=== PATIENT | male | born 1970 | race Caucasian/White ===

== ENCOUNTER 2018-12-27 16:01 | Inpatient (IN) ==
[2018-12-27] MEDS ORDERED: Aspirin 81 MG TAB.CHEW PO ONE (16:13)
[2018-12-27] MEDS ORDERED: Nitroglycerin 0.4 MG TAB.SUBL SL PRN (16:13)
[2018-12-27 16:35] LABS: Basophils % 0.4 %; Eosinophils # 0.3 K/mcL (0.0-0.6); Eosinophils % 3.8 %; Hematocrit 36.3 % (37.5-50.1); Hemoglobin 12.1 g/dL (12.9-16.9); Immature Granulocytes % 0.3 % (0-4); Lymphocytes # 1.9 K/mcL (0.6-4.6); Lymphocytes % 26.3 %; Mean Corpuscular HGB Conc 33.3 g/dL (31.6-35.5); Mean Corpuscular Hemoglobin 33.8 pg (28.0-33.3); Mean Corpuscular Volume 101.4 fL (83.0-100.0); Mean Platelet Volume 10.1 fL (9.4-12.4); Monocytes # 0.7 K/mcL (0.0-1.3); Monocytes % 9.9 %; Neutrophils # 4.2 K/mcL (1.6-8.9); Platelet Count 204 K/mcL (140-400); Red Blood Count 3.58 M/mcL (4.19-5.50); Segmented Neutrophils % 59.3 %; White Blood Count 7.1 K/mcL (4.3-11.1)
[2018-12-27 16:43] LABS: Prothrombin Time 11.4 Seconds (9.4-12.1)
[2018-12-27 16:46] LABS: Activated Partial Thrombo Time 31.6 Seconds (26.0-36.0)
[2018-12-27 16:54] LABS: BUN/Creatinine Ratio 23 (6-26); Blood Urea Nitrogen 17 mg/dL (6-20); Calcium 8.8 mg/dL (8.6-10.3); Carbon Dioxide 24 mEq/L (23-29); Chloride 104 mEq/L (98-107); Glucose 99 mg/dL (70-105); Osmolality,Calculated 292 (280-300); Potassium 4.6 mEq/L (3.5-5.1); Sodium 140 mEq/L (136-145); eGFR For African Americans > 60 (> 60); eGFR For Non-African Americans > 60 (> 60)
[2018-12-27 16:55] LABS: Troponin I < 0.03 ng/mL (< 0.04)
--- NOTE | 2018-12-27 18:04 | Emergency Department Note ---
Disposition Clinical Impression: Chest pain Disposition: Admitted As Inpatient Condition: Good Referrals: Frank Morocho MD [Primary Care Provider] - Forms: ED Satisfaction Letter Time of Disposition: 18:21 Chest Pain HPI - General Chief Complaint: ED Chest Pain Stated Complaint: Chest pain Time Seen by Provider: 12/27/18 16:04 Source: EMS - History of Present Illness HPI Narrative: Patient is a 48-year-old gentleman is a nonverbal autistic patient that presents to the emergency department with chief complaint of chest pain. Per the caregivers the patient was holding his chest today and complaining that it was uncomfortable. The patient does have prior history of cardiac disease and has had a bypass before in the past. The patient currently is saying his chest is not hurting at this time and has no other complaints Severity scale (1-10): 6 - Related Data Home Medications Medication Instructions Recorded Confirmed Aspirin [Adult Low Dose Aspirin EC] 81 mg PO DAILY 10/14/15 08/07/18 Citalopram [CeleXA] 20 mg PO DAILY 10/14/15 08/07/18 Lisinopril [Zestril] 10 mg PO BID 10/14/15 08/07/18 Metformin HCl [Glucophage] 1,000 mg PO BID 10/14/15 08/07/18 Pravastatin Sodium [Pravachol] 40 mg PO DAILY 10/14/15 08/07/18 Glimepiride [Amaryl] 2 mg PO QAM 11/29/15 08/07/18 Levothyroxine Sodium [Tirosint] 50 mcg PO QAM 11/29/15 08/07/18 Phenytoin ER [Dilantin ER] 200 mg PO QAM 11/29/15 08/07/18 Saxagliptin HCl [Onglyza] 5 mg PO DAILY 11/29/15 08/07/18 Previous Rx's Medication Instructions Recorded Metoprolol [Lopressor] 75 mg PO BID #30 tablet 01/16/17 Nitrofurantoin Monohyd/M-Cryst 100 mg PO BID #14 capsule 08/07/18 [Macrobid 100 mg Capsule] Allergies Allergy/AdvReac Type Severity Reaction Status Date / Time No Known Allergies Allergy Verified 08/07/18 19:36 All systems ED: reviewed and negative except as stated. Chest Pain PMH - Past Medical History Medical history: Reports: coronary artery disease, diabetes, GERD, hyperlipidemia, hypertension, myocardial infarction, thyroid disease, other Surgical history: Reports: coronary bypass (CABG) (2V) Psychiatric history: Reports: other, depression - Social History Smoking Status: Never smoker Alcohol use: Reports: none Drug use: Reports: none Physical Exam General: Conversant and pleasant interactive and nontoxic. Head: Normocephalic/atraumatic Eyes:PERRLA, EOMI, no conjunctivitis Nares: Without d/c. Ears: No erythema or d/c noted. Oralpharnyx: P&MMM noted, Neck: Supple, no JVD or CERTIFIED PROFESSIONAL CODER noted. Cardovascular: regular rate and rhythm without murmur, brisk capillary refill, no peripheral edema. Lungs: Clear to ascultation bilaterally, non-labored Abd: Soft nontender, Non Distended, no guarding, no rebound. : Defered Extremities: moves all extremities equally Neuro: Alert at baseline, no obvious gross neuro deficit Psych: Normal Affect Derm: No rash noted - General General appearance: alert Course Vital Signs Temperature 97.8 F 12/27/18 17:42 Pulse Rate 74 12/27/18 17:42 Respiratory Rate 18 12/27/18 17:42 Blood Pressure 106/63 12/27/18 17:42 O2 Sat by Pulse Oximetry 96 12/27/18 17:42 Temperature 97.8 F 12/27/18 17:42 Pulse Rate 74 12/27/18 17:42 Respiratory Rate 18 12/27/18 17:42 Blood Pressure 106/63 12/27/18 17:42 O2 Sat by Pulse Oximetry 96 12/27/18 17:42 Oxygen Delivery Oxygen Delivery Room Air Chest Pain - Lab Data Result diagrams: 12/27/18 16:22 12/27/18 16:22 Lab Results 12/27/18 12/27/18 12/27/18 Range/Units 16:22 16:22 16:22 WBC 7.1 (4.3-11.1) K/mcL RBC 3.58 L (4.19-5.50) M/mcL Hgb 12.1 L (12.9-16.9) g/dL Hct 36.3 L (37.5-50.1) % MCV 101.4 H (83.0-100.0) fL MCH 33.8 H (28.0-33.3) pg MCHC 33.3 (31.6-35.5) g/dL RDW 13.0 (11.5-14.5) % Plt Count 204 (140-400) K/mcL MPV 10.1 (9.4-12.4) fL Immature Gran % 0.3 (0-4) % Seg Neutrophils % 59.3 % Lymphocytes % 26.3 % Monocytes % 9.9 % Eosinophils % 3.8 % Basophils % 0.4 % Neutrophils # 4.2 (1.6-8.9) K/mcL Lymphocytes # 1.9 (0.6-4.6) K/mcL Monocytes # 0.7 (0.0-1.3) K/mcL Eosinophils # 0.3 (0.0-0.6) K/mcL Basophils # 0.0 (0.0-0.2) K/mcL PT 11.4 (9.4-12.1) Seconds INR 1.0 APTT 31.6 (26.0-36.0) Seconds Sodium 140 (136-145) mEq/L Potassium 4.6 (3.5-5.1) mEq/L Chloride 104 (98-107) mEq/L Carbon Dioxide 24 (23-29) mEq/L BUN 17 (6-20) mg/dL Creatinine 0.73 (0.70-1.30) mg/dL Est GFR ( Amer) > 60 (> 60) Est GFR (Non-Af Amer) > 60 (> 60) BUN/Creatinine Ratio 23 (6-26) Glucose 99 (70-105) mg/dL Calculated Osmolality 292 (280-300) Calcium 8.8 (8.6-10.3) mg/dL Troponin I < 0.03 (< 0.04) ng/mL Heart Score - Score History: Moderately Suspicious EKG: Normal Age: 45-65 Risk Factors: Equal/Greater than 3 risk factor or history of atherosclerotic disease Troponin: Less than normal limit HEART Score Total: 4
--- NOTE | 2018-12-27 18:23 | Internal Med History&Physical ---
Date of Encounter: 12/27/18 Time of Encounter: 18:23 Internal Medicine - H&P: HPI Chief complaint: CP History of present illness: Patient is a 48-year-old gentleman with a history of autism who presented to the ER with chest pain, the patient is nonverbal and on the history was taken from his caregiver who stated that the patient and holding chest for the entire day. The patient has history of coronary artery disease, diabetes, GERD, hyperlipidemia, hypertension, myocardial infarction, thyroid disease. The patient was evaluated by the ER staff and EKG was obtained and revealed no significant HQ with changes, cardiac enzymes were obtained and first it was was no significant abnormalities. The patient was admitted further evaluation and management to rule out acute cronary syndrome. 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 Psychiatric history: other, depression - Past Surgical History Surgical History: coronary bypass (CABG) (2V) Additional surgical history: bladder stimulator on his back, super pubic cath placed 2015 - Social History Smoking Status: Never smoker Smokeless Tobacco Status: No Alcohol use: none Drug use: none - Family History Sister Hx Family Cardiac Disorders: Yes (double bypass, heart valve replacement) Father Living Status: Age at : 69 Cause of : [place] Hx Family Cardiac Disorders: Yes ([place]) Internal Medicine - H&P: Meds Citalopram [CeleXA] 20 mg PO DAILY 10/14/15 [History] Lisinopril [Zestril] 10 mg PO BID 10/14/15 [History] Metformin HCl [Glucophage] 1,000 mg PO BID 10/14/15 [History] Pravastatin Sodium [Pravachol] 40 mg PO DAILY 10/14/15 [History] Glimepiride [Amaryl] 2 mg PO QAM 11/29/15 [History] Phenytoin ER [Dilantin ER] 100 mg PO 1600,199911/29/15 [History] Saxagliptin HCl [Onglyza] 5 mg PO DAILY 11/29/15 [History] Aspirin [Lo-Dose Aspirin EC] 81 mg PO DAILY 12/27/18 [History] Levothyroxine Sodium 50 mcg PO 0612/27/18 [History] Loratadine [Allergy Relief] 10 mg PO DAILY 12/27/18 [History] Metoprolol Tartrate 75 mg PO BID 12/27/18 [History] Phenytoin ER [Dilantin ER] 200 mg PO 0800 12/27/18 [History] Allergy/AdvReac Type Severity Reaction Status Date / Time No Known Allergies Allergy Verified 08/07/18 19:36 All Systems PM: A 10-system review of systems was performed and is negative for pertinent findings except as documented above in the HPI. - Constitutional Vitals: Temp Pulse Resp BP Pulse Ox 97.8 F 74 18 106/63 96 12/27/18 17:42 12/27/18 17:42 12/27/18 17:42 12/27/18 17:42 12/27/18 17:42 Exam: ` - Head Head exam: Present: atraumatic, normocephalic - Neck Neck exam general surgery: Present: supple, trachea midline. Absent: lymphadenopathy - Respiratory Respiratory exam: Present: CTAB. Absent: accessory muscle use, rales, rhonchi, wheezes - GI/Abdominal GI/Abdominal exam: Present: normal bowel sounds, soft, no peritoneal signs. Absent: distended, tenderness - Extremities Exam Extremities exam: Present: warm, radial pulses palpable and symmetrical. Absent: calf tenderness, cyanotic, pedal edema Internal Med - H&P Results - Labs CBC & Chem 7: 12/28/18 01:25 12/28/18 01:25 Labs: Short CBC 12/27/18 Range/Units 16:22 WBC 7.1 (4.3-11.1) K/mcL Hgb 12.1 L (12.9-16.9) g/dL Hct 36.3 L (37.5-50.1) % Plt Count 204 (140-400) K/mcL Neutrophils # 4.2 (1.6-8.9) K/mcL BMP 12/27/18 16:22 Sodium 140 Potassium 4.6 Chloride 104 Carbon Dioxide 24 BUN 17 Creatinine 0.73 Glucose 99 Calcium 8.8 Cardiac Enzymes 12/27/18 Range/Units 16:22 Troponin I < 0.03 (< 0.04) ng/mL - Impressions ITS Impressions Chest X-Ray 12/27/18 16:13 IMPRESSION: No evidence of acute cardiopulmonary disease. Negative portable chest x-ray. D/ / Ulisses Cash MD / Ulisses Cash MD Interpreting Provider: Ulisses Cash MD - Assessment and Plan (1) Chest pain Status: Acute Assessment and plan: Chest pain rule out acute cardiac syndrome Differential diagnoses: *Muskuloskeletal CP - myofascial strain, costochondritis *GERD *Esophageal spasm *Pericarditis - unlikely *Pneumonia - no infiltrate on CXR PLAN: - cardiac enzymes x 2 q 8 hr - EKG now and in AM - ASA - O2 by NC to keep SpO2 greater than 92% - UA - CBCD, BMP in AM - Fasting lipids - 2D Echo Qualifiers: Qualified Code(s): R07.9 - Chest pain, unspecified (2) Hypothyroidism Status: Acute Assessment and plan: we'll continue home thyroxine Qualifiers: Qualified Code(s): E03.9 - Hypothyroidism, unspecified (3) Hypertension Status: Acute Assessment and plan: we'll continue medication and adjust regimen as indicated Qualifiers: Qualified Code(s): I10 - Essential (primary) hypertension (4) Diabetes mellitus Status: Acute Assessment and plan: we'll start on insulin sliding scale with moderate coverage Qualifiers: Qualified Code(s): E11.9 - Type 2 diabetes mellitus without complications (5) Hyperlipidemia Status: Acute Assessment and plan: We will obtain FLP, cont statin. Qualifiers: Qualified Code(s): E78.5 - Hyperlipidemia, unspecified (6) Coronary artery disease Status: Acute Assessment and plan: The patient has history of coronary artery disease, he follow-up with Dr. Burgos as an outpatient, there is no evidence of ST-T wave changes on EKG, first set of cardiac enzymes were obtained and was negative, we'll trend cardiac enzymes and arrange for stress test in a.m. Qualifiers: Qualified Code(s): I25.10 - Atherosclerotic heart disease of [place] coronary artery without angina pectoris (7) DVT prophylaxis Status: Acute Assessment and plan: We will place SCDs - Time Spent With Patient Total time spent is greater than 50% in coordination of care (as documented) at patient's floor/unit and/or counseling patient:
[2018-12-27] MEDS ORDERED: Ondansetron 4 MG/2 ML VIAL IVP PRN (18:58)
[2018-12-27] MEDS ORDERED: Naloxone 0.4 MG/ML INJ IVP PRN (18:58)
[2018-12-27] MEDS ORDERED: Dextrose Gel 15 GM/37.5 ML TUBE PO PRN ×2 (22:13)
[2018-12-27] MEDS ORDERED: *HR* Dextrose 50 % in Water (Syg) 50 ML SYRINGE IVP PRN (22:13)
[2018-12-27] MEDS ORDERED: D5% in Water 1,000 ML IVC PRN (22:13)
[2018-12-28 00:34] LABS: Bacteria,Urine None Seen per hpf (None-Few); Bilirubin,Urine Negative (Negative); Blood,Urine Negative (Negative); Clarity,Urine Cloudy (Clear); Color,Urine Yellow (Yellow); Glucose,Urine (UA) Normal (Normal); Hyaline Casts,Urine None Seen per lpf (None-Few); Ketones,Urine Negative (Negative); Leukocyte Esterase,Urine Negative (Negative); Nitrite,Urine Negative (Negative); PH,Urine 6.5 pH Units (5.0-8.0); Protein,Urine Negative (Neg-Trace); Specific Gravity,Urine 1.011 (1.010-1.025); Squamous Epithelial Cell,Urine None Seen per lpf (None-Few); Urobilinogen,Urine Normal (Normal); WBC,Urine 0-3 per hpf (0-3)
[2018-12-28 02:39] LABS: Basophils % 0.5 %; Eosinophils # 0.3 K/mcL (0.0-0.6); Eosinophils % 4.1 %; Hematocrit 35.4 % (37.5-50.1); Hemoglobin 11.6 g/dL (12.9-16.9); Immature Granulocytes % 0.2 % (0-4); Lymphocytes # 2.5 K/mcL (0.6-4.6); Lymphocytes % 40.6 %; Mean Corpuscular HGB Conc 32.8 g/dL (31.6-35.5); Mean Corpuscular Hemoglobin 33.4 pg (28.0-33.3); Mean Platelet Volume 10.7 fL (9.4-12.4); Monocytes # 0.6 K/mcL (0.0-1.3); Monocytes % 9.4 %; Neutrophils # 2.8 K/mcL (1.6-8.9); Platelet Count 193 K/mcL (140-400); Red Blood Count 3.47 M/mcL (4.19-5.50); Red Cell Distribution Width 13.2 % (11.5-14.5); Segmented Neutrophils % 45.2 %; White Blood Count 6.1 K/mcL (4.3-11.1)
[2018-12-28 02:46] LABS: INR 1.1; Prothrombin Time 12.1 Seconds (9.4-12.1)
[2018-12-28 02:49] LABS: Activated Partial Thrombo Time 29.6 Seconds (26.0-36.0)
[2018-12-28 03:02] LABS: Alanine Aminotransferase 15 Units/L (7-52); Albumin 3.7 g/dL (3.5-5.7); Albumin/Globulin Ratio 1.5 (1.1-2.2); Alkaline Phosphatase 74 Units/L (34-104); Aspartate Amino Transferase 18 Units/L (13-39); BUN/Creatinine Ratio 17 (6-26); Bilirubin,Total 0.2 mg/dL (0.3-1.0); Blood Urea Nitrogen 17 mg/dL (6-20); Calcium 8.8 mg/dL (8.6-10.3); Carbon Dioxide 29 mEq/L (23-29); Chloride 104 mEq/L (98-107); Chol/HDL Ratio 3.4 (0-4.9); Cholesterol 132 mg/dL (< 200); Globulin 2.4 g/dL (2.4-3.5); Glucose 147 mg/dL (70-105); HDL Cholesterol 39 mg/dL (40-59); LDL Cholesterol,Calculated 71 mg/dL (0-99); Magnesium 1.4 mg/dL (1.6-2.6); Osmolality,Calculated 294 (280-300); Phosphorous 3.6 mg/dL (2.7-4.5); Potassium 4.3 mEq/L (3.5-5.1); Sodium 140 mEq/L (136-145); Total Protein 6.1 g/dL (6.4-8.9); Triglycerides 111 mg/dL (< 150); eGFR For African Americans > 60 (> 60); eGFR For Non-African Americans > 60 (> 60)
[2018-12-28 03:09] LABS: Troponin I < 0.03 ng/mL (< 0.04)
[2018-12-28] MEDS: Insulin LISPRO 300 UNITS/3 ML VIAL SQ SCH ×5 (05:53→20:50)
[2018-12-28] MEDS ORDERED: Regadenoson 0.4 MG/5 ML SYRINGE IVP ONE (07:22)
[2018-12-28] MEDS: (Saxagliptin Hcl [Onglyza] 5 MG) PO SCH (12:13)
[2018-12-28] MEDS: Loratadine 10 MG TABLET PO SCH (12:13)
[2018-12-28] MEDS: Aspirin Enteric Coated 81 MG Tablet PO SCH (12:13)
--- NOTE | 2018-12-28 15:48 | Internal Med Progress Note ---
Hospitalist Progress Note - Encounter Date of Encounter: 12/28/18 Time of Encounter: 15:46 - Subjective Interval History: Pt still reporting chest pain but sister at bedside states he says "yes" in response to any question. - Exam Vitals: Temp Pulse Resp BP Pulse Ox 97.9 F 88 16 122/76 94 12/28/18 15:38 12/28/18 15:38 12/28/18 15:38 12/28/18 15:38 12/28/18 15:38 Exam: General: Conversant and pleasant interactive and nontoxic. Head: Normocephalic/atraumatic Eyes:PERRLA, EOMI, no conjunctivitis Nares: Without d/c. Ears: No erythema or d/c noted. Oralpharnyx: P&MMM noted, Neck: Supple, no JVD or DRIVER UTILITY WORKER noted. Cardovascular: regular rate and rhythm without murmur, brisk capillary refill, no peripheral edema. Lungs: Clear to ascultation bilaterally, non-labored Abd: Soft nontender, Non Distended, no guarding, no rebound. : Defered Extremities: moves all extremities equally Neuro: Alert at baseline, no obvious gross neuro deficit Psych: Normal Affect Derm: No rash noted - Assessment and Plan (1) Chest pain Current Visit: Yes Status: Acute Assessment and Plan: Chest pain rule out acute cardiac syndrome Differential diagnoses: Awaiting Stress test and echo results. If pain persists will consider cardiology consult. (2) Hypothyroidism Current Visit: Yes Status: Acute Assessment and Plan: continue home thyroxine (3) Hypertension Current Visit: Yes Status: Acute Assessment and Plan: Lisinopril and Metoprolol (4) Diabetes mellitus Current Visit: Yes Status: Acute Assessment and Plan: we'll start on insulin sliding scale with moderate coverage (5) Hyperlipidemia Current Visit: Yes Status: Acute Assessment and Plan: We will obtain FLP, cont Lipitor. (6) Coronary artery disease Current Visit: Yes Status: Acute Assessment and Plan: The patient has history of coronary artery disease, he follows-up with Dr. Burgos as an outpatient. There is no evidence of acute ST-T wave changes on EKG but does appear abnormal. Continue ASA and Lipitor (7) DVT prophylaxis Current Visit: Yes Status: Acute Assessment and Plan: We will place SCDs DVT Prophylaxis: Lovenox - Summary of Assessment and Plan Summary of Assessment and Plan: See HPI by Dr. Ring - Time Spent with Patient Total time spent is greater than 50% in coordination of care (as documented) at patient's floor/unit and/or counseling patient: less than 15 minutes Plan of Care Discussed with: patient Internal Medicine: Result - Labs CBC & Chem 7: 12/28/18 01:25 12/28/18 01:25 Labs: Short CBC 12/27/18 12/28/18 Range/Units 16:22 01:25 WBC 7.1 6.1 (4.3-11.1) K/mcL Hgb 12.1 L 11.6 L (12.9-16.9) g/dL Hct 36.3 L 35.4 L (37.5-50.1) % Plt Count 204 193 (140-400) K/mcL Neutrophils # 4.2 2.8 (1.6-8.9) K/mcL BMP 12/27/18 12/28/18 16:22 01:25 Sodium 140 140 Potassium 4.6 4.3 Chloride 104 104 Carbon Dioxide 24 29 BUN 17 17 Creatinine 0.73 1.00 Glucose 99 147 H Calcium 8.8 8.8 Cardiac Enzymes 12/27/18 12/27/18 12/28/18 Range/Units 16:22 19:42 01:25 Troponin I < 0.03 < 0.03 < 0.03 (< 0.04) ng/mL 12/28/18 Range/Units 06:37 Troponin I < 0.03 (< 0.04) ng/mL Liver Function 12/28/18 Range/Units 01:25 Total Bilirubin 0.2 L (0.3-1.0) mg/dL AST 18 (13-39) Units/L ALT 15 (7-52) Units/L Alkaline Phosphatase 74 (34-104) Units/L Albumin 3.7 (3.5-5.7) g/dL Urine 12/27/18 Range/Units 23:45 Urine Color Yellow (Yellow) Urine Clarity Cloudy A (Clear) Urine pH 6.5 (5.0-8.0) pH Units Ur Specific [place] 1.011 (1.010-1.025) Urine Protein Negative (Neg-Trace) mg/dL Urine Glucose (UA) Normal (Normal) mg/dL - ABG Interpretation ABG results: PT/INR, D-dimer PT 12.1 Seconds (9.4-12.1) 12/28/18 01:25 - Impressions Impressions Chest X-Ray 12/27/18 16:13 IMPRESSION: No evidence of acute cardiopulmonary disease. Negative portable chest x-ray. D/ / Ulisses Cash MD / Ulisses Cash MD Interpreting Provider: Ulisses Cash MD Echocardiogram 12/27/18 19:03 Impressions: LVEF 55-60%. Atypical septal motion consistent with bundle branch block. Mild right ventricular hypokinesis. Mild-moderate aortic regurgitation. No evidence of pulmonary hypertension. Left Ventricular Wall Motion: Rest Echo Findings All wall segments showed normal motion. Findings: Study Quality * Technically adequate exam. ECG Findings * Sinus rhythm with BBB. Left Ventricle * LVEF 55-60%. * Normal LV chamber size. * Atypical septal motion consistent with bundle branch block. * Indeterminate diastolic function. * Mild concentric left ventricular hypertrophy. Right Ventricle * Mild right ventricular hypokinesis. * Normal right ventricular size. Left Atrium * Mildly dilated left atrium. Right Atrium * Normal right atrial size. Aortic Valve * Trileaflet aortic valve. * Normal aortic valve structure. * No aortic stenosis. * Mild-moderate aortic regurgitation. Mitral Valve * Normal mitral valve structure. * No mitral regurgitation. * No mitral stenosis. Tricuspid Valve * Trace tricuspid regurgitation. * No tricuspid stenosis. * No evidence of pulmonary hypertension. * Normal tricuspid valve structure. Pulmonic Valve * Pulmonic valve not well visualized. Aorta * Normally sized aortic root. Pericardium * The pericardium appears normal. IVC * The IVC is not well evaluated. Pulmonary Artery * Normal visualized portions of the main pulmonary artery. Consult Discharge Plan - Plan Referrals: Frank Morocho MD [Primary Care Provider] - (Follow up has been requested) ____ (1) Chest pain Qualifiers: Qualified Code(s): R07.9 - Chest pain, unspecified (2) Hypothyroidism Qualifiers: Qualified Code(s): E03.9 - Hypothyroidism, unspecified (3) Hypertension Qualifiers: Qualified Code(s): I10 - Essential (primary) hypertension (5) Hyperlipidemia Qualifiers: Qualified Code(s): E78.5 - Hyperlipidemia, unspecified
[2018-12-29] MEDS ORDERED: *HR* Enoxaparin 40 MG/0.4 ML SYRINGE SQ SCH (06:00)
[2018-12-29 06:51] LABS: % Iron Saturation 34 % (20-55); Iron 111 mcg/dL (65-175); Transferrin 236 mg/dL (203-362)
[2018-12-29 07:07] LABS: Ferritin 24 ng/mL (20-250)
[2018-12-29 07:12] LABS: Folate 9.2 ng/mL (3.0-16.0)
[2018-12-29] MEDS: Insulin LISPRO 300 UNITS/3 ML VIAL SQ SCH (09:11)
[2018-12-29] MEDS: Aspirin Enteric Coated 81 MG Tablet PO SCH (09:21)
[2018-12-29] MEDS: Loratadine 10 MG TABLET PO SCH (09:21)
[2018-12-29] MEDS: (Saxagliptin Hcl [Onglyza] 5 MG) PO SCH (09:27)
--- NOTE | 2018-12-29 10:14 | Discharge Summary ---
Orders not resulted at time of discharge: Pending orders 12/27/18 16:13 ECG 12 lead ECG [ECG] Stat 12/28/18 06:00 ECG 12 lead ECG [ECG] AM 0600 12/28/18 07:02 NM tremaine perf SPECT multi [NM] Routine Date of Encounter: 12/29/18 Time of Encounter: 10:00 - Discharge Diagnosis (1) Chest pain Priority: Primary Status: Acute Assessment and Plan: 48-year-old gentleman with a history of autism who presented to the ER with chest pain, the patient is nonverbal and on the history was taken from his caregiver who stated that the patient and holding chest for the entire day. The patient has history of coronary artery disease, diabetes, GERD, hyperlipidemia, hypertension, myocardial infarction, thyroid disease. The patient was evaluated by the ER staff and EKG was obtained and revealed no significant HQ with changes, cardiac enzymes were obtained and first it was was no significant abnormalities. He had an echo and stress test done that both came back WNL. He was discharged in a stable condition Qualifiers: Qualified Code(s): R07.9 - Chest pain, unspecified (2) Hypothyroidism Priority: Primary Status: Acute Qualifiers: Qualified Code(s): E03.9 - Hypothyroidism, unspecified (3) Hypertension Priority: Primary Status: Acute Qualifiers: Qualified Code(s): I10 - Essential (primary) hypertension (4) Diabetes mellitus Priority: Primary Status: Acute Qualifiers: Qualified Code(s): E11.9 - Type 2 diabetes mellitus without complications (5) Hyperlipidemia Priority: Primary Status: Acute Qualifiers: Qualified Code(s): E78.5 - Hyperlipidemia, unspecified (6) Coronary artery disease Priority: Primary Status: Acute Qualifiers: Qualified Code(s): I25.10 - Atherosclerotic heart disease of [place] coronary artery without angina pectoris (7) DVT prophylaxis Priority: Primary Status: Acute Hospital course: Mr. Tang is a 48 year old male - Time Spent with Patient Total time spent providing and/or coordinating discharge services: - Discharge Medications Prescriptions: Continued Saxagliptin HCl [Onglyza] 5 mg PO DAILY Phenytoin ER [Dilantin ER] 100 mg PO 1600,2000 Glimepiride [Amaryl] 2 mg PO QAM Aspirin [Lo-Dose Aspirin EC] 81 mg PO DAILY Levothyroxine Sodium 50 mcg PO 0630 Loratadine [Allergy Relief] 10 mg PO DAILY Metoprolol Tartrate 75 mg PO BID Phenytoin ER [Dilantin ER] 200 mg PO 0800 Citalopram [CeleXA] 20 mg PO DAILY Lisinopril [Zestril] 10 mg PO BID Pravastatin Sodium [Pravachol] 40 mg PO DAILY Metformin HCl [Glucophage] 1,000 mg PO BID Home Medications: Citalopram [CeleXA] 20 mg PO DAILY 10/14/15 [History] Lisinopril [Zestril] 10 mg PO BID 10/14/15 [History] Metformin HCl [Glucophage] 1,000 mg PO BID 10/14/15 [History] Pravastatin Sodium [Pravachol] 40 mg PO DAILY 10/14/15 [History] Glimepiride [Amaryl] 2 mg PO QAM 11/29/15 [History] Phenytoin ER [Dilantin ER] 100 mg PO 1600,2000 11/29/15 [History] Saxagliptin HCl [Onglyza] 5 mg PO DAILY 11/29/15 [History] Aspirin [Lo-Dose Aspirin EC] 81 mg PO DAILY 12/27/18 [History] Levothyroxine Sodium 50 mcg PO 0630 12/27/18 [History] Loratadine [Allergy Relief] 10 mg PO DAILY 12/27/18 [History] Metoprolol Tartrate 75 mg PO BID 12/27/18 [History] Phenytoin ER [Dilantin ER] 200 mg PO 0800 12/27/18 [History] Allergies/Adverse Reactions: Allergy/AdvReac Type Severity Reaction Status Date / Time No Known Allergies Allergy Verified 08/07/18 19:36 Date of admission: 12/28/18 16:38 Primary care physician: Frank Morocho MD - Constitutional Vitals: Temp Pulse Resp BP Pulse Ox 97.3 F L 86 16 129/82 98 12/29/18 07:48 12/29/18 07:48 12/29/18 07:48 12/29/18 07:48 12/29/18 07:48 Exam: General: Conversant and pleasant interactive and nontoxic. Head: Normocephalic/atraumatic Eyes:PERRLA, EOMI, no conjunctivitis Nares: Without d/c. Ears: No erythema or d/c noted. Oralpharnyx: P&MMM noted, Neck: Supple, no JVD or DISTRICT MANAGER IN TRAINING noted. Cardovascular: regular rate and rhythm without murmur, brisk capillary refill, no peripheral edema. Lungs: Clear to ascultation bilaterally, non-labored Abd: Soft nontender, Non Distended, no guarding, no rebound. : Defered Extremities: moves all extremities equally Neuro: Alert at baseline, no obvious gross neuro deficit Psych: Normal Affect Derm: No rash noted - Patient Status Disposition: Home, Self-Care Condition: Good - Discharge Instructions Instructions: Angina (DC), Chest Pain (DC), Hypothyroidism (DC), Diabetes Mellitus Type 2 in Adults (DC), Chronic Hypertension (DC) Follow Up With: Frank Morocho MD [Primary Care Provider] - (Follow up has been requested. The office will call and schedule an appointment with you. If you do not hear from them in 2 days, please call the office to schedule. )
[2018-12-29 11:23] VITALS: BP 115/71
--- NOTE | 2018-12-29 15:56 | Electrocardiograph Report ---
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
--- NOTE | 2018-12-29 16:02 | Electrocardiograph Report ---
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
== END 2018-12-29 11:50 | disposition home or self-care (01) | DRG 313 ==
LOC: 3BNU 16:01 → EMEROOARM 16:01 → 3BNU 20:29
PROVIDERS: ADMIT Internal Medicine Nephrology; ATTEND Internal Medicine

== ENCOUNTER 2020-01-07 20:12 | Inpatient (IN) ==
[2020-01-07] MEDS ORDERED: Aspirin 81 MG TAB.CHEW PO ONE (20:21)
[2020-01-07] MEDS ORDERED: Nitroglycerin 0.4 MG TAB.SUBL SL ONE (20:22)
[2020-01-07 20:44] LABS: Basophils # 0.1 K/mcL (0.0-0.2); Basophils % 0.6 %; Eosinophils # 0.5 K/mcL (0.0-0.6); Eosinophils % 5.8 %; Hematocrit 36.5 % (37.5-50.1); Hemoglobin 12.2 g/dL (12.9-16.9); Immature Granulocytes % 0.2 % (0-4); Lymphocytes # 2.5 K/mcL (0.6-4.6); Lymphocytes % 28.6 %; Mean Corpuscular HGB Conc 33.4 g/dL (31.6-35.5); Mean Corpuscular Hemoglobin 34.1 pg (28.0-33.3); Mean Platelet Volume 10.4 fL (9.4-12.4); Monocytes # 0.8 K/mcL (0.0-1.3); Monocytes % 8.9 %; Neutrophils # 4.9 K/mcL (1.6-8.9); Platelet Count 237 K/mcL (140-400); Red Blood Count 3.58 M/mcL (4.19-5.50); Red Cell Distribution Width 12.4 % (11.5-14.5); Segmented Neutrophils % 55.9 %; White Blood Count 8.7 K/mcL (4.3-11.1)
[2020-01-07 20:47] LABS: Prothrombin Time 11.5 Seconds (9.4-12.1)
[2020-01-07 20:50] LABS: Activated Partial Thrombo Time 30.9 Seconds (26.0-36.0)
[2020-01-07 21:04] LABS: BUN/Creatinine Ratio 16 (6-26); Blood Urea Nitrogen 16 mg/dL (6-20); Calcium 8.6 mg/dL (8.6-10.3); Carbon Dioxide 27 mEq/L (23-29); Chloride 100 mEq/L (98-107); Glucose 251 mg/dL (70-105); Osmolality,Calculated 290 (280-300); Potassium 4.5 mEq/L (3.5-5.1); Sodium 135 mEq/L (136-145); Troponin I < 0.03 ng/mL (< 0.04); eGFR For African Americans > 60 (> 60); eGFR For Non-African Americans > 60 (> 60)
[2020-01-07 21:28] LABS: Bacteria,Urine Few per hpf (None-Few); Bilirubin,Urine Negative (Negative); Blood,Urine Negative (Negative); Clarity,Urine Clear (Clear); Color,Urine Light-Yellow (Yellow); Glucose,Urine (UA) Normal (Normal); Ketones,Urine Negative (Negative); Leukocyte Esterase,Urine Large (Negative); Nitrite,Urine Negative (Negative); PH,Urine 6.5 pH Units (5.0-8.0); Protein,Urine Negative (Neg-Trace); RBC,Urine 0-3 per hpf (0-3); Specific Gravity,Urine 1.008 (1.010-1.025); Squamous Epithelial Cell,Urine Few per hpf (None-Few); Urobilinogen,Urine Normal (Normal); WBC,Urine 30-50 per hpf (0-3)
[2020-01-07 21:49] LABS: Phenytoin (Dilantin) 8.2 mcg/mL (10.0-20.0)
[2020-01-08] MEDS ORDERED: Naloxone 0.4 MG/ML INJ IVP PRN (00:49)
[2020-01-08] MEDS ORDERED: D5% in Water 1,000 ML IVC PRN (00:52)
[2020-01-08] MEDS ORDERED: Dextrose Gel 15 GM/37.5 ML TUBE PO PRN ×2 (00:52)
[2020-01-08] MEDS ORDERED: *HR* Dextrose 50 % in Water (Vial) 50 ML VIAL IVP PRN (00:52)
[2020-01-08] MEDS: *HR* Heparin 5,000 UNIT/ML VIAL SQ SCH ×2 (05:02→18:33)
[2020-01-08] MEDS ORDERED: Perflutren Lipid Microsphere 1.3 ML in 0.9 % Sodium Chloride 8.7 ML IVP PRN ×2 (07:37→14:24)
[2020-01-08] MEDS: Insulin LISPRO 300 UNITS/3 ML VIAL SQ SCH ×3 (08:33→18:28)
[2020-01-08] MEDS ORDERED: lisinopriL 10 MG TABLET PO SCH (09:00)
[2020-01-08 10:03] LABS: Hematocrit 36.6 % (37.5-50.1); Hemoglobin 12.2 g/dL (12.9-16.9); Mean Corpuscular HGB Conc 33.3 g/dL (31.6-35.5); Mean Corpuscular Volume 101.9 fL (83.0-100.0); Mean Platelet Volume 10.5 fL (9.4-12.4); Platelet Count 213 K/mcL (140-400); Red Blood Count 3.59 M/mcL (4.19-5.50); Red Cell Distribution Width 12.4 % (11.5-14.5)
[2020-01-08 10:24] LABS: BUN/Creatinine Ratio 17 (6-26); Blood Urea Nitrogen 15 mg/dL (6-20); Calcium 8.6 mg/dL (8.6-10.3); Carbon Dioxide 28 mEq/L (23-29); Chloride 106 mEq/L (98-107); Glucose 151 mg/dL (70-105); Osmolality,Calculated 294 (280-300); Potassium 4.4 mEq/L (3.5-5.1); Sodium 140 mEq/L (136-145); Troponin I < 0.03 ng/mL (< 0.04); eGFR For African Americans > 60 (> 60); eGFR For Non-African Americans > 60 (> 60)
[2020-01-08] MEDS ORDERED: Regadenoson 0.4 MG/5 ML SYRINGE IVP ONE (10:25)
[2020-01-08] MEDS: Loratadine 10 MG TABLET PO SCH (12:31)
[2020-01-08] MEDS: Aspirin Enteric Coated 81 MG Tablet PO SCH (12:31)
[2020-01-08] MEDS ORDERED: Cyanocobalamin (B-12) 1,000 MCG/ML VIAL IM SCH (14:30)
[2020-01-08] MEDS ORDERED: Insulin LISPRO 300 UNITS/3 ML VIAL SQ SCH (21:00)
[2020-01-09] MEDS: *HR* Heparin 5,000 UNIT/ML VIAL SQ SCH (05:12)
[2020-01-09 07:36] VITALS: BP 98/63
[2020-01-09] MEDS: Insulin LISPRO 300 UNITS/3 ML VIAL SQ SCH (07:49)
[2020-01-09] MEDS ORDERED: lisinopriL 5 MG TABLET PO SCH (09:00)
[2020-01-09] MEDS: Aspirin Enteric Coated 81 MG Tablet PO SCH (09:22)
[2020-01-09] MEDS: Loratadine 10 MG TABLET PO SCH (09:22)
== END 2020-01-09 12:09 | disposition other institution (70) | DRG 313 ==
LOC: EMEROOARM 20:12 → 3ANU 20:12 → SUATTDRO 22:21 → 3ANU 23:17
PROVIDERS: ADMIT Internal Medicine; ATTEND Internal Medicine